=== PATIENT | female | born 1950 | race Caucasian/White ===

== ENCOUNTER 2016-08-16 08:44 | Day surgery (SDC) | payer MEDICARE ==
--- NOTE | 2016-07-25 13:43 | HP ---
Chief Complaint - Chief Complaint Date of Service: 07/25/16 Chief Complaint: need a colonoscopy History of Present Illness: Patient presents for a screening colonoscopy. She had one in 2004. She has diverticulosis. No problems with that scope, no problems with diverticulitis, no problems with her BMs last few years. No blood in stools. Occasional hemorrhoid. - Patient's Past Medical History Patient History - Medical: Arthritis, Diabetes Type 2, GERD, Renal Failure Patient History - Cardiac/Respiratory: Hypertension Patient History - Cancer: No Hx of Cancer Patient History - Surgical Procedures: Appendectomy, Back Surgery, Colonoscopy - 2004, EGD, Orthopedic - left lower leg fracture and repair Patient History - Other: None LMP (females 10-50): Menopausal - Family History Family History:: no untoward family reactions to anesthesia, no familial bleeding tendencies, no family history of clotting disorders, no family history of premature - Family History Mother Family History - Medical: , Alzheimer's Disease, Diabetes Type 2 Family History - Cardiac/Respiratory: CHF Father Family History - Medical: Family History - Cardiac/Respiratory: Angina, CVA/Stroke - Social History Living Situations: alone Abuse History: No History of abuse Psych History: No pertinent hx Does anyone smoke in the home?: Yes Smoking Status: Current every day smoker Have you smoked in the past 12 months: Yes Alcohol Use: rarely Drug Use: none - Immunizations Immunizations Up to Date: Yes Hx Pneumococcal Vaccination: Yes History of Influenza Vaccine: Yes Review Of Systems (GEN) - Review of Systems Generalized/Overall Review: Absent: Weakness, Malaise, Weight loss Respiratory: Absent: Cough, Shortness of Breath, Wheezing Cardiac: Absent: Chest Pain Abdominal: Absent: Vomiting, Abdominal Pain, Constipation, Diarrhea, Bright blood from rectum Genitourinary: Present: Urgency, Frequency. Absent: Burning, Nocturia Musculoskeletal: Present: Joint Pain Neurological: Present: No Symptoms Reported Skin: Absent: Dryness, Rash Endocrine: Present: No Symptoms Reported Allergies/Adverse Reactions: Allergies Allergy/AdvReac Type Severity Reaction Status Date / Time oxycodone HCl [From Percocet] Allergy Verified 03/28/16 16:31 Sulfa (Sulfonamide Allergy Verified 03/28/16 16:30 Antibiotics) rosuvastatin calcium AdvReac Verified 03/28/16 16:32 [From Crestor] Home Medications: HOME MEDICATIONS Aspirin [Aspirin EC] 81 mg PO DAILY 03/28/16 [Last Taken Unknown] Atenolol [Tenormin] 25 mg PO DAILY 03/28/16 [Last Taken Unknown] B&C/Ferrous Fum/FA/D3/Zinc Ox [Prorenal Multivitamin Tablet] 1 each PO DAILY 08/08 [Last Taken Unknown] Cholecalciferol [Vitamin D] 2,000 unit PO DAILY 03/28/16 [Last Taken Unknown] Glimepiride 2 mg PO DAILY 03/28/16 [Last Taken Unknown] Metformin HCl [Metformin HCl ER] 500 mg PO BID 03/28/16 [Last Taken Unknown] Amlodipine Besylate [Norvasc] 5 mg PO DAILY 07/25/16 [Last Taken Unknown] Famotidine 20 mg PO BID 07/25/16 [Last Taken Unknown] Losartan/Hydrochlorothiazide [Losartan-Hctz 50-12.5 mg Tab] 1 each PO BID [Last Taken Unknown] Exam - Exam Vital Signs: Vital Signs - Last Taken Temp 36.9 C 07/25/16 Pulse Resp BP 140/75 03/28/16 17:08 Pulse Ox Ht 5'5 Wt 200# Constitutional: Present: Alert, Oriented x3, Cooperative, No distress, Overweight ENT Exam: Present: normal ENT inspection, hearing grossly normal Eye Exam: bilateral eye: normal inspection Neck: Present: full range of motion, supple Back Exam: Present: normal inspection Breasts: Present: Exam deferred Respiratory: Present: lungs clear, normal breath sounds, no respiratory distress. Absent: wheezing Cardiovascular/Chest: Present: normal peripheral pulses, regular rate, rhythm, no edema, no murmur Abdomen: Present: Normal bowel sounds, nontender, nondistended, no hepatospenomegaly /Rectal: Present: Exam deferred Extremity: Present: normal range of motion, no pedal edema Skin Exam: Present: normal color, warm/dry Neurologic: Present: no motor/sensory deficits, alert, normal mood/affect Appearance: Present: appropriate appearance, appropriate insight, neat, no memory impairment Eye contact: Present: cooperative, good eye contact, normal speech Thoughts: Present: normal thought pattern Assessment/Plan - Narrative Narrative: [facility] discussed for a colonoscopy with possible biopsy or polypectomy. Pt agrees. Prep discussed. Low chance of perforation or bleeding. - Assessment/Plan (1) Screen for colon cancer Problem: Acute (2) HTN (hypertension) Problem: Chronic (3) Arthritic-like pain Problem: Chronic (4) Smoker unmotivated to quit Problem: Chronic
[~2016-08-16 08:44] MED LIST: RINGERS SOLUTION,LACTATED 1,000 ML IV PRN
[2016-08-16] MEDS ORDERED: RINGERS SOLUTION,LACTATED 1,000 ML IV ONE (09:16)
[2016-08-16] MEDS ORDERED: RINGERS SOLUTION,LACTATED 1,000 ML IV PRN (10:11)
--- NOTE | 2016-08-16 10:40 | OR ---
Operative Report - Dictated Report Narrative: DATE OF PROCEDURE: 08/16/2016 PREOPERATIVE DIAGNOSIS: #1 Screening colonoscopy POSTOPERATIVE DIAGNOSIS: #1 Screening colonoscopy #2 scattered sigmoid diverticulosis OPERATION: Colonoscopy SURGEON: Mani Faith M.D. [facility] ANESTHESIA : Michael Barrett [employer] sedation INDICATIONS: This is 66 year old female who presents for a screening colonoscopy. I have discussed the risks, benefits, indications, and contraindications for colonoscopy with the possibility of biopsy and/or polypectomy. She understands, agrees, and wishes to proceed. She has undergone a SUPREP and has tolerated it well. PROCEDURE: The patient was brought to the operating theater and placed into the left lateral decubitus position. The patient underwent sedation per anesthesia , and a digital rectal exam was performed. This was noted to be unremarkable. The patient was noted to have no internal or external hemorrhoids. The Olympus video colonoscope was introduced and advanced into the rectum. The rectum was normal in appearance. The scope was then advanced through the sigmoid, where scattered diverticular disease was noted. The scope was then advanced to the cecum using standard reduction techniques. The appendiceal orifice was noted. The ileocecal valve was noted. The terminal ileum was entered and appeared to be normal. A picture was taken. The prep appeared to be excellent with a [place] prep score of 9. The scope was withdrawn slowly as the ascending, transverse, descending, and sigmoid colon were examined in a circumferential fashion. The scope was brought back into the rectum where it was retroflexed in the lower rectum was examined. The air was decompressed, and the scope was then removed. Withdrawal time was 10 minutes. The patient did have some coughing with evaluation of the left colon. POSTOPERATIVE CONDITION: The patient was awakened and taken to the ambulatory surgery center in good condition. No complications were encountered. FINDINGS: Diverticulosis Specimens: EBL: 0 The findings were discussed with the patient and their family. I recommend a follow-up colonoscopy in 10 years for screening purposes. Diverticulosis booklet was reviewed.
[2016-08-16 11:05] VITALS: BP 139/73
--- NOTE | 2016-08-16 11:12 | OR ---
Operative Report - Dictated Report Narrative: this note is a repeat and no dictation follows....
== END 2016-08-16 08:45 | disposition home or self-care (01) ==
LOC: AMB 08:44
PROVIDERS: ATTEND Surgery
PROC: 0DJD8ZZ Inspection of Lower Intestinal Tract, Via Natural or Artificial Opening Endoscopic (ICD-10-PCS; principal; 2016-08-16 09:45)
DX: Z12.11 Encounter for screening for malignant neoplasm of colon (principal); K57.30 Diverticulosis of large intestine without perforation or abscess without bleeding; E11.9 Type 2 diabetes mellitus without complications; I10 Essential (primary) hypertension; K21.9 Gastro-esophageal reflux disease without esophagitis; F17.200 Nicotine dependence, unspecified, uncomplicated; Z68.33 Body mass index [BMI] 33.0-33.9, adult